=== PATIENT | female | born 1990 | race Two or more races ===

== ENCOUNTER 2025-08-23 07:45 | Outpatient (CLI) | payer OTHER ==
[2025-08-31] MEDS ORDERED: OSTERA TABLET1 EACH PO (16:48)
[2025-08-31] MEDS ORDERED: OCUVITE EYE HE1 EACH PO (16:48)
[2025-08-31] MEDS ORDERED: OMEGA-31000 MG PO (16:48)
== END 2025-08-23 07:46 | disposition home or self-care (01) ==
LOC: PRENATAL 07:45
PROVIDERS: ATTEND Obstetrics & Gynecology Maternal & Fetal Medicine
DX: O26.843 Uterine size-date discrepancy, third trimester (principal); O36.8130 Decreased fetal movements, third trimester, not applicable or unspecified; O24.419 Gestational diabetes mellitus in pregnancy, unspecified control; Z3A.37 37 weeks gestation of pregnancy